=== PATIENT | female | born 1990 | race Caucasian/White ===

== ENCOUNTER → 2017-09-02 | Emergency (ER) | payer OTHER ==
[~2017-09-02] VITALS: Ht 152.4 cm; Wt 45.4 kg
[~2017-09-02] MED LIST: ZITHROMAX TRI-500 MG PO
== END | disposition home or self-care (01) ==
LOC: ER 10:59
DX: R53.81 Other malaise (principal); R50.9 Fever, unspecified; R05 Cough

== ENCOUNTER 2024-01-31 17:22 | Emergency (ER) | payer OTHER ==
[~2024-01-31] VITALS: Ht 149.9 cm; Wt 47.2 kg
[2024-01-31] MEDS ORDERED: GUAIFENESIN/DEXTROMETHORPHAN 10ML BLIST.PACK PO ONE (18:45)
[2024-01-31] MEDS ORDERED: DEXAMETHASONE SODIUM PHOSPHATE 4 MG/ML VIAL IM ONE (18:45)
[2024-01-31 19:23] LABS: HEMATOCRIT 26.3 % (36.0-45.00); MEAN CORPUSCULAR HGB CONC 31.2 g/dl (32.0-36.0); PLATELET COUNT 309 K/uL (150-450); RED BLOOD COUNT 4.11 M/uL (4.00-6.00)
[2024-01-31] MEDS ORDERED: MAG HYDROX/ALUMINUM HYD/SIMETH 30 ML BLIST.PACK PO ONE (19:30)
[2024-01-31 19:36] LABS: HEMOGLOBIN 8.2 g/dL (12.0-15.00); MEAN CELL VOLUME 63.9 fL (80.00-100.00); MEAN CORPUSCULAR HEMOGLOBIN 19.9 pg (27.00-32.0); RED CELL DISTRIBUTION WIDTH 19.1 % (11.5-14.5)
[2024-01-31] MEDS ORDERED: IRON325 MG PO (20:36)
[2024-01-31] MEDS ORDERED: ZITHROMAX500 MG PO (20:36)
[2024-01-31] MEDS ORDERED: TUSNEL LIQUID178 ML PO (20:36)
== END 2024-01-31 21:13 | disposition home or self-care (01) ==
LOC: ER 17:23
PROVIDERS: General Practice
DX: B34.9 Viral infection, unspecified (principal); Z88.6 Allergy status to analgesic agent; D64.89 Other specified anemias; Z20.822 Contact with and (suspected) exposure to COVID-19

== ENCOUNTER → 2024-11-07 | Emergency (ER) | payer OTHER ==
[~2024-11-07] MED LIST changes: +IRON325 MG PO; +TUSNEL LIQUID178 ML PO; +ZITHROMAX500 MG PO
== END | disposition home or self-care (01) ==
LOC: ER 13:31
DX: R42 Dizziness and giddiness (principal); Z88.0 Allergy status to penicillin; D64.89 Other specified anemias